=== PATIENT | female | born 1950 | race Caucasian/White ===

== ENCOUNTER 2018-01-15 17:58 | Inpatient (IN) | payer MEDICAID ==
[~2018-01-15] VITALS: Ht 157.5 cm; Wt 85.5 kg
[2018-01-15 18:31] LABS: BASOPHIL % 0.6 % (0-2); PLATELET COUNT 209 x10^3mcL (130-400)
[2018-01-15 18:34] LABS: RED CELL DISTRIBUTION WIDTH 15.2 % (11.5-14.5)
[2018-01-15 18:45] LABS: CALCIUM 8.3 mg/dL (8.5-10.1); CARBON DIOXIDE 22.7 mmol/L (21-32); CREATININE SERUM 1.5 mg/dL (0.6-1.0); POTASSIUM SERUM 3.4 mmol/L (3.5-5.1)
[2018-01-15 18:51] LABS: BILIRUBIN TOTAL 0.38 mg/dL (0.20-1.00); TOTAL PROTEIN, SERUM 7.1 g/dL (6.4-8.2)
[2018-01-15 18:52] LABS: ALBUMIN 2.8 g/dL (3.4-5.0)
[2018-01-15 20:34] LABS: MAGNESIUM 1.9 mg/dL (1.8-2.4); PHOSPHOROUS 3.1 mg/dL (2.5-4.9)
[2018-01-15] MEDS ORDERED: NEU300 (20:47)
[2018-01-15] MEDS ORDERED: METFORMIN HYDR500 M1 (20:48)
[2018-01-15] MEDS ORDERED: FUROSEMIDE20 MG PO (20:48)
[2018-01-15] MEDS ORDERED: NAPROSYN500 MG (20:48)
[2018-01-15] MEDS ORDERED: TYLENOL WITH CO1 TA2 (20:49)
[2018-01-15] MEDS ORDERED: TIROSINT25 MC1 PO (20:49)
[2018-01-15] MEDS ORDERED: BENAZEPRIL HYDR20 M1 PO (20:50)
[2018-01-15] MEDS ORDERED: BAYER ASPIRIN R81 MG PO (20:50)
[2018-01-15] MEDS ORDERED: CARVEDILOL3.125 M1 PO (20:50)
[2018-01-15] MEDS ORDERED: GLIPIZIDE5 M2 PO (20:51)
[2018-01-15 21:38] VITALS: BP 204/78
[2018-01-15 21:41] VITALS: Ht 157.5 cm; Wt 85.5 kg
[2018-01-15 23:05] VITALS: BP 161/56
[2018-01-16 05:15] VITALS: BP 153/77
[2018-01-16 05:52] LABS: BASOPHIL % 0.5 % (0-2); PLATELET COUNT 219 x10^3mcL (130-400)
[2018-01-16 06:34] LABS: CALCIUM 8.3 mg/dL (8.5-10.1); CARBON DIOXIDE 23.2 mmol/L (21-32); CREATININE SERUM 1.4 mg/dL (0.6-1.0); MAGNESIUM 1.9 mg/dL (1.8-2.4); PHOSPHOROUS 3.3 mg/dL (2.5-4.9); POTASSIUM SERUM 4.6 mmol/L (3.5-5.1)
[2018-01-16 06:59] LABS: RED CELL DISTRIBUTION WIDTH 15.1 % (11.5-14.5)
[2018-01-16 08:57] VITALS: BP 141/63
[2018-01-16 12:02] VITALS: BP 140/62
[2018-01-16 12:07] LABS: UA SPECIFIC GRAVITY 1.015 (1.005-1.035); microscopic required? YES; urine erythrocyte 2+ (NEGATIVE)
[2018-01-16 13:50] VITALS: BP 140/62
[2018-01-16 20:55] LABS: AMPHETAMINE QUAL UR NONE DETECTED (See below)
== END 2018-01-16 15:04 | disposition home or self-care (01) | DRG 420 ==
LOC: ED 17:58 → MU 20:10 → DU 20:10 → MU 21:02 → DU 22:02
PROVIDERS: Emergency Medicine; Internal Medicine
DX: E11.649 Type 2 diabetes mellitus with hypoglycemia without coma (principal); N17.0 Acute kidney failure with tubular necrosis; E43 Unspecified severe protein-calorie malnutrition; G93.41 Metabolic encephalopathy; D64.9 Anemia, unspecified; E87.6 Hypokalemia; I16.0 Hypertensive urgency; E03.9 Hypothyroidism, unspecified; Z68.33 Body mass index [BMI] 33.0-33.9, adult; Z86.73 Personal history of transient ischemic attack (TIA), and cerebral infarction without residual deficits
CPT/HCPCS: 82962; 83880; 90732; J0360; J3490; Q0092

== ENCOUNTER 2018-04-18 13:07 | Inpatient (IN) | payer MEDICAID ==
[~2018-04-18] VITALS: Ht 157.5 cm; Wt 90.3 kg
[~2018-04-18 13:07] MED LIST: BAYER ASPIRIN R81 MG PO; BENAZEPRIL HYDR20 M1 PO; CARVEDILOL3.125 M1 PO; FUROSEMIDE20 MG PO; GLIPIZIDE5 M2 PO; METFORMIN HYDR500 M1; NAPROSYN500 MG; NEU300; TIROSINT25 MC1 PO; TYLENOL WITH CO1 TA2
[2018-04-18 13:16] VITALS: Ht 157.5 cm; Wt 90.3 kg
[2018-04-18 13:46] LABS: CALCIUM 8.5 mg/dL (8.5-10.1); CARBON DIOXIDE 25.1 mmol/L (21-32); CHLORIDE SERUM 108 mmol/L (98-107); CREATININE SERUM 1.4 mg/dL (0.6-1.0); GFR1 40 mL/min; GLUCOSE SERUM 67 mg/dL (74-106); POTASSIUM SERUM 3.1 mmol/L (3.5-5.1); SODIUM SERUM 143 mmol/L (136-145)
[2018-04-18 13:50] LABS: BASOPHIL % 0.5 % (0-2); PLATELET COUNT 212 x10^3mcL (130-400)
[2018-04-18 13:53] LABS: ALKALINE PHOSPHATASE 184 U/L (46-116); ALT/SGPT 14 U/L (14-59); AST/SGOT 12 U/L (15-37); BILIRUBIN TOTAL 0.38 mg/dL (0.20-1.00); TOTAL PROTEIN, SERUM 7.1 g/dL (6.4-8.2)
[2018-04-18 13:54] LABS: RED CELL DISTRIBUTION WIDTH 15.1 % (11.5-14.5)
[2018-04-18 14:09] LABS: ALBUMIN 2.8 g/dL (3.4-5.0)
[2018-04-18 17:02] VITALS: BP 149/64
[2018-04-18 20:59] VITALS: BP 183/74
[2018-04-19 05:31] VITALS: BP 149/62
[2018-04-19 06:50] LABS: BASOPHIL % 0.2 % (0-2); PLATELET COUNT 204 x10^3mcL (130-400)
[2018-04-19 07:05] LABS: CALCIUM 8.1 mg/dL (8.5-10.1); CARBON DIOXIDE 23.8 mmol/L (21-32); CREATININE SERUM 1.3 mg/dL (0.6-1.0); POTASSIUM SERUM 4.2 mmol/L (3.5-5.1); RED CELL DISTRIBUTION WIDTH 15.1 % (11.5-14.5)
[2018-04-19 09:01] VITALS: BP 147/52
[2018-04-19 11:26] VITALS: BP 147/52
== END 2018-04-19 12:40 | disposition home or self-care (01) | DRG 420 ==
LOC: ED 13:07 → DU 14:33
PROVIDERS: Emergency Medicine; ADMIT General Practice
DX: E11.649 Type 2 diabetes mellitus with hypoglycemia without coma (principal); N17.0 Acute kidney failure with tubular necrosis; K72.00 Acute and subacute hepatic failure without coma; E11.40 Type 2 diabetes mellitus with diabetic neuropathy, unspecified; E44.1 Mild protein-calorie malnutrition; I12.9 Hypertensive chronic kidney disease with stage 1 through stage 4 chronic kidney disease, or unspecified chronic kidney disease; N18.1 Chronic kidney disease, stage 1; E11.22 Type 2 diabetes mellitus with diabetic chronic kidney disease; E66.01 Morbid (severe) obesity due to excess calories; Z79.84 Long term (current) use of oral hypoglycemic drugs; Z79.82 Long term (current) use of aspirin; Z86.73 Personal history of transient ischemic attack (TIA), and cerebral infarction without residual deficits
CPT/HCPCS: 82962; G0480; J3490; J7042; Q0092

== ENCOUNTER 2019-10-03 11:19 | Emergency (ER) | payer MEDICAID ==
[~2019-10-03] VITALS: Ht 157.5 cm; Wt 83.5 kg
[2019-10-03 11:53] VITALS: BP 178/67; Ht 157.5 cm; Wt 83.5 kg
== END 2019-10-03 14:04 | disposition home or self-care (01) ==
LOC: ED 11:19
DX: L60.0 Ingrowing nail (principal); I10 Essential (primary) hypertension; E11.9 Type 2 diabetes mellitus without complications; Z86.73 Personal history of transient ischemic attack (TIA), and cerebral infarction without residual deficits